=== PATIENT | male | born 1970 | race Caucasian/White ===

== ENCOUNTER 2019-11-09 11:29 | Emergency (ER) | payer MEDICAID, OTHER ==
[~2019-11-09] VITALS: Ht 177.8 cm; Wt 90.7 kg
--- NOTE | 2019-11-09 11:34 | NUR ---
Dr Roberts at the bedside for MSE.
[2019-11-09 11:49] LABS: BASOPHILS % (AUTO) 0.6 % (0.0-2.0); EOSINOPHILS # (AUTO) 0.2 K/uL (0.0-0.7); EOSINOPHILS % (AUTO) 2.4 % (0.0-7.0); HEMATOCRIT 53.4 % (36.7-47.1); HEMOGLOBIN 17.8 g/dL (12.5-16.3); LYMPHOCYTES # (AUTO) 2.3 K/uL (20.0-40.0); MEAN CORPUSCULAR HEMOGLOBIN 28.8 uug (23.8-33.4); MEAN CORPUSCULAR HGB CONC 33 g/dL (32.5-36.3); MEAN CORPUSCULAR VOLUME 86.2 fL (73.0-96.2); MONOCYTES # (AUTO) 0.7 K/uL (2.0-10.0); MONOCYTES % (AUTO) 10.9 % (0.0-11.0); NEUTROPHILS # (AUTO) 3.6 K/uL (1.8-8.9); NEUTROPHILS % (AUTO) 52.1 % (38.5-71.5); PLATELET COUNT (AUTO) 311 K/uL (152-348); WHITE BLOOD COUNT (AUTO) 6.8 K/uL (3.6-10.2)
[2019-11-09 11:53] LABS: POTASSIUM 3.8 mmol/L (3.5-5.1)
[2019-11-09 12:05] LABS: BILIRUBIN,DIRECT 0.1 mg/dL (0.0-0.2); BILIRUBIN,TOTAL 0.4 mg/dL (0.2-1.0); TOTAL PROTEIN, SERUM 8.5 g/dL (6.4-8.2)
--- NOTE | 2019-11-09 12:46 | NUR ---
Patient is resting comfortably in bed with eyes closed, NAD noted.
[2019-11-09] MEDS ORDERED: IBUPROFEN 600 MG TABLET ONE (13:12)
[2019-11-09] MEDS: IBUPROFEN 600 MG TABLET PO ONE (13:13)
--- NOTE | 2019-11-09 15:58 | NUR ---
Patient discharged to home in stable conditon. Written and verbal after care instructions given. Patient verbalizes understanding of instructions. Stressed follow up with pmd or return to ER for worsening s/s.
--- NOTE | 2019-11-09 15:58 | NUR ---
IV removed. Catheter intact and site benign. Pressure and 4x4 gauze applied to site. No bleeding noted.
[2019-11-09 15:59] VITALS: BP 139/90
== END 2019-11-09 15:59 | disposition home or self-care (01) ==
LOC: ER 11:29
DX: R07.89 Other chest pain (principal)
CPT/HCPCS: 36415; 70030-TC; 71045; 83690; 85025; 93005; A4663

== ENCOUNTER 2022-10-12 18:37 | Emergency (ER) | payer OTHER ==
[~2022-10-12] VITALS: Ht 162.6 cm; Wt 90.7 kg
--- NOTE | 2022-10-12 18:54 | NUR ---
@[email or web address], medical screenign exam in progress
--- NOTE | 2022-10-12 19:10 | NUR ---
Received report from FABIANA Macias.
[2022-10-12] MEDS ORDERED: D-ME473S63 PO (20:29)
[2022-10-12] MEDS ORDERED: NAPR-1164 PO (20:29)
--- NOTE | 2022-10-12 20:36 | NUR ---
Patient discharged to home in stable condition. Written and verbal after care instructions given. Patient verbalizes understanding of instructions. Stressed follow up or return to ER for worsening s/s. Patient is a/ox4, NAD noted. Patient is able to walk with steady gait
[2022-10-12 20:37] VITALS: BP 134/78
== END 2022-10-12 20:37 | disposition home or self-care (01) ==
LOC: ER 18:39
DX: R59.0 Localized enlarged lymph nodes (principal); J06.9 Acute upper respiratory infection, unspecified; Z20.822 Contact with and (suspected) exposure to COVID-19
CPT/HCPCS: 87400; A4663

== ENCOUNTER 2022-10-18 14:22 | Emergency (ER) | payer OTHER ==
[~2022-10-18] VITALS: Ht 182.9 cm; Wt 90.7 kg
[~2022-10-18 14:22] MED LIST: D-ME473S63 PO; NAPR-1164 PO
--- NOTE | 2022-10-18 19:01 | NUR ---
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
[2022-10-18] MEDS ORDERED: IBUP-1955 PO (19:18)
[2022-10-18] MEDS ORDERED: BENZ-13 PO (19:18)
[2022-10-18] MEDS ORDERED: OFLO5DRO5 RIGHT EAR (19:18)
--- NOTE | 2022-10-18 19:55 | NUR ---
Aftercare instructions printed out, but patient did not want to wait for prescription and left.
[2022-10-18 19:56] VITALS: BP 133/88
== END 2022-10-18 19:56 | disposition home or self-care (01) ==
LOC: ER 14:38
DX: J06.9 Acute upper respiratory infection, unspecified (principal); H60.91 Unspecified otitis externa, right ear; R03.0 Elevated blood-pressure reading, without diagnosis of hypertension
CPT/HCPCS: A4663